=== PATIENT | female | born 1960 | race Caucasian/White ===

== ENCOUNTER 2016-09-05 10:22 | Inpatient (IN) | payer BC ==
--- NOTE | ~2016-09-05 | HP ---
History And Physical [address] [place]. [address] NAME: CHRISTIE CANTRELL : 58 STATUS : ADM Thao PAT#: [id number] AGE: 56 ADM/REG DATE : 09/05/16 MR#: [id number] REPORT SERV DATE: 09/05/16 DICTATED BY: JOSÉ LOPEZ DATE: 09/05/16 REPORT STATUS : Draft TRANSCRIBED BY: MODL DATE: 09/05/16 DATE OF ADMISSION: 09/05/2016 CARDIOLOGY ADMISSION HISTORY AND PHYSICAL IDENTIFYING DATA: The patient is a 56-year-old woman with a history of hypertrophic cardiomyopathy. CHIEF COMPLAINT: Approximately one to two week history of progressive shortness of breath, wheezing, exertional dyspnea, and generalized fatigue with two to three day history of substernal pressure-type chest pain associated with near syncope. HISTORY OF PRESENT ILLNESS: Ms. Cantrell is a pleasant 56-year-old woman who is followed by Dr. Jann Carmen. The patient reports she was in her usual state of health until approximately one to two weeks ago. The patient developed worsening wheezing and dyspnea. She reports that she has a history of "asthma." The patient was seen by her primary care provider and was started on Levaquin as well as an albuterol inhaler. The patient apparently was also given a short course of oral steroids. The patient had no significant improvement in her symptoms, however. In fact over the last several days, she is becoming increasingly weak. About two days ago, the patient developed a substernal chest pain. She describes this as a pressure type pain "as if someone is sitting on my chest." The pain has been continuous for almost 48 hours at this time. The patient reports the pain is not clearly exertional, though the patient is having dizziness and near-syncope which is provoked with exertion. The patient also describes exertional dyspnea. She does not give a clear history of orthopnea or paroxysmal nocturnal dyspnea. She reports that her chest pain was slightly improved when nitroglycerin paste was placed on her chest in the emergency room, though she does continue to have chest pain at this time. PAST MEDICAL HISTORY: 1. Hypertrophic cardiomyopathy with minimal LVOT gradient. 2. Asthma. 3. Paroxysmal atrial fibrillation. PAST SURGICAL HISTORY: The patient reports a previous cholecystectomy. She has had an ablation procedure for atrial fibrillation. She denies any other major surgeries. FAMILY HISTORY: The patient denies any significant family history of sudden cardiac . Her father had several strokes, though she reports that none of her other family members have been diagnosed with hypertrophic cardiomyopathy. SOCIAL HISTORY: The patient has no significant history of tobacco use. She drinks alcohol only rarely. She has no history of recreational drug use. ALLERGIES: THE PATIENT HAS DOCUMENTED ALLERGIES TO PREDNISONE, DOXYCYCLINE, AUGMENTIN, NITROFURANTOIN, AND GATIFLOXACIN. History And Physical [address] [address] NAME: CHRISTIE CANTRELL : 58 STATUS : ADM Thao PAT#: [id number] AGE: 56 ADM/REG DATE : 09/05/16 MR#: [id number] REPORT SERV DATE: 09/05/16 DICTATED BY: JOSÉ LOPEZ DATE: 09/05/16 REPORT STATUS : Draft TRANSCRIBED BY: GUY DATE: 09/05/16 HOME MEDICATIONS: 1. Tylenol 650 mg p.o. q.6 hours as needed for pain. 2. Albuterol 90 mcg per actuation inhaler two puffs twice daily as needed. 3. Albuterol nebulizers 3 mL daily as needed. 4. Zyrtec 10 mg p.o. daily. 5. Vitamin B12 100 mcg p.o. twice daily. 6. Diltiazem ER 120 mg p.o. at bedtime. 7. Flonase nasal spray two sprays per nostril daily. 8. Lasix 20 mg p.o. daily. 9. Levofloxacin 500 mg p.o. daily-this was completed last Saturday08/31/2016. 10.Ativan 3 mg p.o. at bedtime. 11.Asmanex 2 puffs inhaled twice daily as needed. 12.Singulair 10 mg p.o. daily. 13.Pantoprazole 40 mg p.o. q.a.m. 14.MiraLAX powder 1 packet p.o. twice daily as needed for constipation. 15.Klor-Con 10 mEq p.o. daily. 16.Phenergan 12.5 mg p.o. twice daily as needed. 17.Xarelto 20 mg p.o. daily. 18.Sertraline 150 mg p.o. daily at bedtime. 19.Sotalol 80 mg p.o. q.12 hours. 20.Zanaflex 2 mg p.o. twice daily as needed. 21.Ultram 100 mg p.o. twice daily as needed. 22.Biest progesterone testosterone supplement patch to inner thighs twice daily. 23.Benadryl 37.5 mg p.o. at bedtime as needed. REVIEW OF SYSTEMS: A complete 12-system review was performed. This is noncontributory except for the pertinent positives and negatives noted in the history of present illness above. PHYSICAL EXAMINATION: VITAL SIGNS: Temperature is 97.5 degrees Fahrenheit, blood pressure is 165/96 mmHg, heart rate is 62 beats per minute and regular, respirations 16, oxygen saturation is 92% on room air on admission. Of note, the patient reports that she has taken her pulse ox at home and found her oxygen saturation to be as low as 82%. GENERAL: The patient is a well-nourished, well-developed white woman in no acute distress. The patient is able to speak in full sentences. She is very mildly tachypneic. EYES: PERRL, EOMI, clear conjunctiva. HEAD/MNT: NCAT with moist mucous membranes and grossly normal hard and soft palate. NECK: Supple with no obvious thyromegaly or lymphadenopathy CARDIOVASCULAR: There is a regular rhythm with a normal S1 and a physiologically split second heart sound. A soft S4 gallop is noted. There is a very faint 1/6 early peaking systolic murmur noted. The murmur does not change with Valsalva maneuver and does not appear to be positional. The jugular venous pressure is significantly elevated to approximately 12 cm. No carotid artery bruits are noted. PULMONARY: There are rales noted in the anterior lung tang as well as the bilateral lung bases. There is diffuse expiratory wheezing noted with a prolonged expiratory phase. There is no dullness to percussion, however. History And Physical [address] [address] NAME: CHRISTIE CANTRELL : 58 STATUS : ADM Thao PAT#: [id number] AGE: 56 ADM/REG DATE : 09/05/16 MR#: [id number] REPORT SERV DATE: 09/05/16 DICTATED BY: JOSÉ LOPEZ DATE: 09/05/16 REPORT STATUS : Draft TRANSCRIBED BY: GUY DATE: 09/05/16 ABDOMINAL: Soft, non-tender, non-distended with no hepatosplenomegaly noted. EXTREMITIES: There is trace ankle edema with no significant clubbing or cyanosis. MUSCULOSKELETAL: Grossly normal strength and range of motion in all extremities INTEGUMENTARY: Skin appears intact with no bruises, wounds or active lesions noted NEURO/PSYC: Alert and oriented x3, with no dysarthria, facial droop or lateralizing weakness noted. DATA: A 12-lead EKG: The patient's 12-lead EKG on admission shows right axis deviation with ST-segment depression in the inferior leads. While the P-wave axis appears grossly normal, the initial EKG obtained in the ER is essentially a mere image of the patient's baseline EKG in the limb leads. A repeat EKG performed on 09/05/2016 at 1130 hours shows church of the patient's more typical pattern with left axis deviation, secondary ST/T-wave changes and RSR prime pattern. A lateral OH cannot be excluded. Again, the patient's initial EKG is felt to be due to limb lead misplacement. Her repeat EKG is unchanged from baseline. The chest x-ray shows stable cardiomegaly with mild cephalization and no other significant abnormality. LABORATORY DATA: Cell count show a white blood cell count of 12.6, hemoglobin 13.7, hematocrit 42, platelets 309, INR is 1.3. Electrolytes show a sodium of 142, potassium 3.8, chloride is 104, CO2 of 30, BUN 16, creatinine 0.9, glucose is 124, magnesium 2.3. Albumin is 4.1. The patient's initial troponin I is 0.04. A repeat troponin I is 0.06. ASSESSMENT AND PLAN: 1. Acute on chronic diastolic congestive heart failure: The patient has elevated jugular venous pressure, rales, and wheezing which are suggestive of diastolic congestive heart failure. The patient's most recent echocardiogram was performed in the year 2015. This shows super normal ejection fraction with severe asymmetric septal hypertrophy. The septal diameter is 2.1 cm. The patient does have systolic anterior motion noted on her echocardiogram, however, there is a minimal LVOT gradient which was estimated at only 16 mmHg, and apparently was not provocable. There is no other clinically significant valvular heart disease reported. The patient reports that she does have a previous diagnosis of diastolic heart failure. Her oral Lasix will be discontinued, and the patient will be started on Lasix 20 mg IV q.12 hours as tolerated. The patient will be started on Aldactone 25 mg daily. We will monitor the patient's electrolytes closely and monitor for any evidence of provocation of the patient's LVOT gradient given her diagnosis of obstructive cardiomyopathy in the presence of systolic anterior motion of the patient's mitral valve leaflets. 2. Chest pain: The patient has had a very minimal elevation in her troponin I. A third repeat troponin will be obtained. I feel that an acute coronary syndrome is unlikely and the patient's symptoms of chest discomfort are likely due to elevated left ventricular end-diastolic pressure. If the patient's symptoms do not respond to diuresis, we will consider a noninvasive workup for myocardial ischemia. A B-type natriuretic peptide, thyroid function panel, and echocardiogram will be obtained. History And Physical [address] [address] NAME: CHRISTIE CANTRELL : 58 STATUS : ADM Thao PAT#: [id number] AGE: 56 ADM/REG DATE : 09/05/16 MR#: [id number] REPORT SERV DATE: 09/05/16 DICTATED BY: JOSÉ LOPEZ DATE: 09/05/16 REPORT STATUS : Draft TRANSCRIBED BY: GUY DATE: 09/05/16 [facility]/GUY José Lopez MD / [id number] CC: José Lopez MD
[~2016-09-05 10:22] MED LIST: ADVAIR250 INH; ADVIL PO; AMBIEN 10MG; ASAB PO; ATEN50 PO; ATIVAN2 MG PO; BEN25 PO; BENADRYL OTC PO; BETAP120 PO; BETAPACE80 PO; CARDCD120 PO; CENTRUM TAB1 TAB PO; DHE1 PO; DULERA 200 MCG/13 GM INH; DUONEB INH; EMETROL LIQ.1 ML PO; ESTRACE1 MG PO; FLONASE NAS; FLOVENT44 INH; GAS-X80 MG PO; HYDROCHLOROT12.5 MG PO; KAPIDEX60 MG PO; KEFLEX PO; L20 PO; LAN25 PO; LEVAQUIN5T PO; LINZESS 290 M290 MCG PO; LOP25 PO; MAXIDE; MAXIMUM D3 PO; MICRO-K10 MEQ PO; MIRALAXPKT PO; PRILOSEC PO; PRILOSEC40 MG PO; PROAIR HFA INH; PROMETRIUM PO; PROTONIX20 MG PO; PROVENTSOL INH; SINGULAIR1 PO; SUCR PO; SUPER B-100 PO; SYMBICORT 160/41 INH INH; TRANXENE T15 MG PO; TYLENOL SIN1 PO; ULTRAM50 PO; VENTOLIN HFA; VENTOLIN HFA INH; VIACTIV PO; VIMOVO PO; VITC500 PO; XARELTO20 MG PO; XOPENEX HFA INH; XYZAL5 MG PO; ZOFRAN4 PO; ZOL50 PO; ZYRTEC ALLGY10 MG PO; [UNRECOGNIZED DRUG - OTHER] PO
[2016-09-05 11:04] LABS: BASOPHILS 0.2 %; BASOPHILS ABSOLUTE 0.02 10/3/uL (0.0-0.16); EOSINOPHILS 1.2 %; EOSINOPHILS ABSOLUTE 0.15 10/3/uL (0.0-0.53); ER CBC TAT 0 Hrs 07 Mins; HEMATOCRIT 42.3 % (36.0-48.0); HEMOGLOBIN 13.7 g/dL (12.0-16.0); IMMATURE GRANULOCYTES 0.4 %; IMMATURE GRANULOCYTES ABSOLUTE 0.05 10/3/uL (0.0-0.11); LYMPHOCYTES 18.5 %; LYMPHOCYTES ABSOLUTE 2.33 10/3/uL (0.67-4.30); MEAN CORPUS HGB CONC 32.4 g/dL (32.0-36.0); MEAN CORPUSCULAR HEMOGLOB 30.6 pg (26.0-34.0); MEAN PLATELET VOLUME 9.5 fL (9.2-13.0); MONOCYTES 6.3 %; NEUTROPHILS 73.4 %; NEUTROPHILS ABSOLUTE 9.25 10/3/uL (2.02-8.40); RBC DISTRIBUTION WIDTH 15.1 % (12.0-16.0); RED CELL COUNT 4.47 10/6/uL (4.0-5.6); WHITE BLOOD CELLS 12.6 10/3/uL (4.5-10.5)
[2016-09-05 11:05] LABS: MANUAL DIFF NO %; MEAN CORPUSCULAR VOLUME 94.6 fL (80-100); PLATELET COUNT 309 10/3/uL (150-400)
[2016-09-05 11:10] LABS: INTERNATIONAL NORMAL RATI 1.3 UNITS (-); PARTIAL THROMBO TIME 28.1 SEC (22.5-37.2)
[2016-09-05 11:11] LABS: PROTIME (NOT ORD) 15.8 SEC (12.0-14.5)
[2016-09-05 11:31] LABS: ALBUMIN 4.1 G/DL (3.5-5.0); ALKALINE PHOSPHATASE 91 U/L (45-117); BUN (BLOOD UREA NITROGEN) 16 MG/DL (6-23); CALCIUM, SERUM 9.3 MG/DL (8.5-10.4); CHLORIDE, SERUM 104 MMOL/L (96-112); CO2 (CARBON DIOXIDE) 30 MMOL/L (24-34); CREATININE 0.92 MG/DL (0.55-1.02); DIRECT BILIRUBIN 0.1 MG/DL (0.0-0.4); GFR AFRICAN AMERICAN 80 ML/MIN (>=60); GFR NON AFRICAN AMERICAN 69 ML/MIN (>=60); GLUCOSE, SERUM 124 MG/DL (60-99); INDIRECT BILIRUBIN(NOT ORDER) 0.5 MG/DL (0.1-0.9); POTASSIUM, SERUM 3.8 MMOL/L (3.5-5.3); SGPT(ALT) 51 U/L (5-65); SODIUM, SERUM 142 MMOL/L (135-148); TOTAL BILIRUBIN 0.6 MG/DL (0-1.2); TOTAL PROTEIN 7.7 G/DL (6.0-8.5); TROPONIN I 0.04 NG/ML (<0.05)
[2016-09-05 11:32] LABS: SGOT(AST) 31 U/L (5-40)
[2016-09-05 11:36] LABS: CHEST PAIN PROFILE TAT 0 Hrs 34 Mins
[2016-09-05] MEDS ORDERED: ASMANEX200 INH (12:12)
[2016-09-05] MEDS ORDERED: VENTOLIN HFA INH (12:12)
[2016-09-05] MEDS ORDERED: [UNRECOGNIZED DRUG - MIXTURE] TOP (12:15)
[2016-09-05] MEDS ORDERED: CARTIA XT120 MG/24 PO (12:16)
[2016-09-05] MEDS ORDERED: FLONASE NAS (12:16)
[2016-09-05] MEDS ORDERED: L20 PO (12:17)
[2016-09-05] MEDS ORDERED: MIRALAX POWDER1 PKT PO (12:17)
[2016-09-05] MEDS ORDERED: ATIVAN2 MG PO (12:18)
[2016-09-05] MEDS ORDERED: KLOR-CON 1010 MEQ PO (12:18)
[2016-09-05] MEDS ORDERED: PROTONIX PO (12:20)
[2016-09-05] MEDS ORDERED: PR12.5 PO (12:21)
[2016-09-05] MEDS ORDERED: ZOL50 PO (12:21)
[2016-09-05] MEDS ORDERED: BETAPACE80 PO (12:22)
[2016-09-05] MEDS ORDERED: ULTRAM50 PO (12:23)
[2016-09-05] MEDS ORDERED: ALBUTEROL0.083 % INH (12:23)
[2016-09-05] MEDS ORDERED: LEVAQUIN5T PO (12:24)
[2016-09-05] MEDS ORDERED: B12100T PO (12:24)
[2016-09-05] MEDS ORDERED: ZANAFLEX2 MG PO (12:26)
[2016-09-05] MEDS ORDERED: BENADRYL PO (12:26)
[2016-09-05] MEDS ORDERED: SINGULAIR1 PO (12:27)
[2016-09-05] MEDS ORDERED: XARELTO20 MG PO (12:27)
[2016-09-05] MEDS ORDERED: 8 HOUR650 MG PO (12:28)
[2016-09-05] MEDS ORDERED: ZYRTEC ALLGY10 MG PO (12:28)
[2016-09-05 21:10] LABS: FREE T4 0.97 NG/DL (0.76-1.46)
[2016-09-05 21:11] LABS: TROPONIN I 0.05 NG/ML (<0.05); ULTRASENSITIVE TSH 0.81 MCIU/ML (0.358-3.740)
[2016-09-06 05:42] LABS: BASOPHILS 0.2 %; BASOPHILS ABSOLUTE 0.02 10/3/uL (0.0-0.16); EOSINOPHILS 0.8 %; HEMATOCRIT 40.2 % (36.0-48.0); HEMOGLOBIN 13.6 g/dL (12.0-16.0); IMMATURE GRANULOCYTES 0.3 %; IMMATURE GRANULOCYTES ABSOLUTE 0.04 10/3/uL (0.0-0.11); LYMPHOCYTES 15.4 %; LYMPHOCYTES ABSOLUTE 1.95 10/3/uL (0.67-4.30); MEAN CORPUS HGB CONC 33.8 g/dL (32.0-36.0); MEAN CORPUSCULAR HEMOGLOB 31.4 pg (26.0-34.0); MEAN CORPUSCULAR VOLUME 92.8 fL (80-100); MEAN PLATELET VOLUME 9.4 fL (9.2-13.0); MONOCYTES 5.5 %; MONOCYTES ABSOLUTE 0.69 10/3/uL (0.21-1.20); NEUTROPHILS 77.8 %; NEUTROPHILS ABSOLUTE 9.85 10/3/uL (2.02-8.40); PLATELET COUNT 272 10/3/uL (150-400); RED CELL COUNT 4.33 10/6/uL (4.0-5.6); WHITE BLOOD CELLS 12.7 10/3/uL (4.5-10.5)
[2016-09-06 05:43] LABS: MANUAL DIFF NO %
[2016-09-06 05:53] LABS: CALCIUM, SERUM 9.7 MG/DL (8.5-10.4); CHLORIDE, SERUM 105 MMOL/L (96-112); CO2 (CARBON DIOXIDE) 28 MMOL/L (24-34); CREATININE 0.95 MG/DL (0.55-1.02); GFR AFRICAN AMERICAN 77 ML/MIN (>=60); GFR NON AFRICAN AMERICAN 66 ML/MIN (>=60); GLUCOSE, SERUM 115 MG/DL (60-99); POTASSIUM, SERUM 3.8 MMOL/L (3.5-5.3); SODIUM, SERUM 141 MMOL/L (135-148)
[2016-09-06 05:55] LABS: BUN (BLOOD UREA NITROGEN) 12 MG/DL (6-23)
[2016-09-07 06:20] LABS: BUN (BLOOD UREA NITROGEN) 15 MG/DL (6-23); CALCIUM, SERUM 9.6 MG/DL (8.5-10.4); CHLORIDE, SERUM 104 MMOL/L (96-112); CO2 (CARBON DIOXIDE) 28 MMOL/L (24-34); CREATININE 0.84 MG/DL (0.55-1.02); GFR AFRICAN AMERICAN 89 ML/MIN (>=60); GFR NON AFRICAN AMERICAN 77 ML/MIN (>=60); GLUCOSE, SERUM 121 MG/DL (60-99); POTASSIUM, SERUM 3.7 MMOL/L (3.5-5.3); SODIUM, SERUM 141 MMOL/L (135-148)
[2016-09-07 06:37] LABS: BASOPHILS 0.1 %; BASOPHILS ABSOLUTE 0.01 10/3/uL (0.0-0.16); EOSINOPHILS 1.3 %; EOSINOPHILS ABSOLUTE 0.09 10/3/uL (0.0-0.53); HEMATOCRIT 43.3 % (36.0-48.0); HEMOGLOBIN 14.6 g/dL (12.0-16.0); IMMATURE GRANULOCYTES 0.6 %; IMMATURE GRANULOCYTES ABSOLUTE 0.04 10/3/uL (0.0-0.11); LYMPHOCYTES 27.4 %; LYMPHOCYTES ABSOLUTE 1.95 10/3/uL (0.67-4.30); MEAN CORPUS HGB CONC 33.7 g/dL (32.0-36.0); MEAN CORPUSCULAR HEMOGLOB 30.9 pg (26.0-34.0); MEAN CORPUSCULAR VOLUME 91.7 fL (80-100); MEAN PLATELET VOLUME 9.2 fL (9.2-13.0); MONOCYTES 7.9 %; MONOCYTES ABSOLUTE 0.56 10/3/uL (0.21-1.20); NEUTROPHILS 62.7 %; NEUTROPHILS ABSOLUTE 4.46 10/3/uL (2.02-8.40); PLATELET COUNT 282 10/3/uL (150-400); RBC DISTRIBUTION WIDTH 14.8 % (12.0-16.0); RED CELL COUNT 4.72 10/6/uL (4.0-5.6)
[2016-09-07 06:40] LABS: MANUAL DIFF NO %; WHITE BLOOD CELLS 7.1 10/3/uL (4.5-10.5)
[2016-09-07] MEDS ORDERED: SPIRO25 PO (11:17)
[2016-09-07] MEDS ORDERED: DEMA10T (11:18)
== END 2016-09-07 16:03 | disposition home or self-care (01) | DRG 292 ==
LOC: ER 10:22 → CDU1 13:05 → CDU2 13:43
PROVIDERS: Emergency Medicine; Internal Medicine Cardiovascular Disease
DX: I50.33 Acute on chronic diastolic (congestive) heart failure (principal); I42.2 Other hypertrophic cardiomyopathy; Z79.01 Long term (current) use of anticoagulants; I10 Essential (primary) hypertension; I48.0 Paroxysmal atrial fibrillation; J45.909 Unspecified asthma, uncomplicated; Z90.49 Acquired absence of other specified parts of digestive tract; Z98.890 Other specified postprocedural states; Z82.3 Family history of stroke; Z88.8 Allergy status to other drugs, medicaments and biological substances; Z88.1 Allergy status to other antibiotic agents; Z79.899 Other long term (current) drug therapy; R07.9 Chest pain, unspecified
CPT/HCPCS: 71010; 80048; 80076; 83690; 83735; 83880; 84439; 84443; 84484; 85025; 85610; 85730; 93005; 99285; A9270-GY; C8929; J0360; J1940; Q9957